=== PATIENT | female | born 1950 | race Caucasian/White ===

== ENCOUNTER 2017-12-30 05:59 | Day surgery (SDC) | payer MEDICARE, MEDICAID ==
[~2017-12-30] VITALS: Ht 165.1 cm; Wt 72.8 kg
[2017-12-30] MEDS ORDERED: LIDOCAINE-MPF 1%, 2ML ONE (06:35)
[2017-12-30 06:38] VITALS: BP 182/95
[2017-12-30] MEDS ORDERED: LIDOCAINE-MPF 1%, 5ML ONE (06:57)
[2017-12-30] MEDS ORDERED: BUPIVACAINE/PF 0.5% ONE (06:58)
[2017-12-30] MEDS ORDERED: EPINEPHRINE 1 MG/ML, 1ML ONE (06:58)
[2017-12-30] MEDS ORDERED: FISH OIL PO (07:11)
[2017-12-30] MEDS ORDERED: [UNRECOGNIZED DRUG - OTHER] PO (07:11)
[2017-12-30] MEDS ORDERED: RIVA20TA PO (07:11)
[2017-12-30] MEDS ORDERED: METOPROLOL PO (07:11)
[2017-12-30] MEDS ORDERED: VIT D PO (07:11)
[2017-12-30] MEDS ORDERED: VALS40TA2 PO (07:11)
[2017-12-30] MEDS ORDERED: FLEC100T PO (07:11)
[2017-12-30] MEDS ORDERED: CETI10CA PO (07:14)
[2017-12-30] MEDS ORDERED: LACTATED RINGERS 1,000 ML IV SCH (07:51)
[2017-12-30] MEDS ORDERED: DEXAMETHASONE 4 MG/ML, 1ML ONE (07:58)
[2017-12-30] MEDS ORDERED: LIDOCAINE GEL 2%, 5ML ONE (07:58)
[2017-12-30] MEDS ORDERED: EPHEDRINE 50 MG/ML, 1ML ONE (07:58)
[2017-12-30] MEDS ORDERED: MIDAZOLAM 1 MG/ML, 2ML ONE ×2 (07:58)
[2017-12-30] MEDS ORDERED: ONDANSETRON 2MG/ML, 2ML ONE (07:58)
[2017-12-30] MEDS ORDERED: SUCCINYLCHOLINE 20 MG/ML, 10ML ONE (07:58)
[2017-12-30] MEDS ORDERED: FENTANYL PF 100 MCG/2ML ONE ×2 (07:59→11:41)
[2017-12-30] MEDS ORDERED: LIDOCAINE-MPF 1%, 2ML INFIL ONE (08:00)
[2017-12-30] MEDS ORDERED: LIDOCAINE-MPF 2% ,5ML ONE (08:01)
[2017-12-30] MEDS ORDERED: PROPOFOL 10 MG/ML, 20ML ONE (09:54)
[2017-12-30] MEDS ORDERED: CEFAZOLIN 1,000 MG ONE (10:19)
[2017-12-30] MEDS ORDERED: OMNIPAQUE 180 MG/ML, 20ML VIAL ONE (11:01)
[2017-12-30] MEDS ORDERED: DIAZEPAM 5 MG/ML, 2ML IVPush PRN (11:30)
[2017-12-30] MEDS: FENTANYL PF 100 MCG/2ML IV PRN ×3 (11:42→12:04)
[2017-12-30] MEDS ORDERED: ACETAMINOPHEN 325 MG TABLET PO PRN (12:00)
[2017-12-30] MEDS ORDERED: OXYcodone 5 MG/5 ML ORAL.SOL UDC PO PRN (12:00)
[2017-12-30] MEDS ORDERED: ALBUTEROL SULFATE 2.5 MG/3 ML ONE (17:14)
[2017-12-30] MEDS ORDERED: ALBUTEROL SULFATE 2.5 MG/3 ML NPPB ONE (17:30)
== END 2017-12-30 18:45 | disposition home or self-care (01) ==
LOC: OUT 05:59
PROVIDERS: ATTEND Orthopaedic Surgery Orthopaedic Surgery of the Spine
DX: M80.88XA Other osteoporosis with current pathological fracture, vertebra(e), initial encounter for fracture (principal); I10 Essential (primary) hypertension; Z98.890 Other specified postprocedural states; Z01.818 Encounter for other preprocedural examination; Z88.8 Allergy status to other drugs, medicaments and biological substances
CPT/HCPCS: 22513; 71046; 72072; 88307; 88311; 94640; C1713; J0171; J0330; J0690; J1100; J2250; J2405; J2704; J3010; J3360; J3490; J7120; Q9965